=== PATIENT | female | born 1975 | race Asian ===

== ENCOUNTER 2016-11-17 19:52 | Emergency (ER) | payer OTHER ==
[~2016-11-17] VITALS: Ht 165.1 cm; Wt 108.9 kg
[2016-11-17 20:10] VITALS: BP 154/86; TEMP 98.3
== END 2016-11-17 22:02 | disposition home or self-care (01) ==
LOC: ED 19:52
DX: S60.212A Contusion of left wrist, initial encounter (principal); S90.02XA Contusion of left ankle, initial encounter; S90.32XA Contusion of left foot, initial encounter; V86.59XA Driver of other special all-terrain or other off-road motor vehicle injured in nontraffic accident, initial encounter
CPT/HCPCS: 99283

== ENCOUNTER 2019-02-12 09:33 | Outpatient (CLI) | payer OTHER | END 2019-02-12 23:59 | disposition home or self-care (01) | LOC: MAMMO 09:33 | DX: Z12.31 Encounter for screening mammogram for malignant neoplasm of breast (principal) ==

== ENCOUNTER 2019-03-02 10:15 | Outpatient (CLI) | payer OTHER | END 2019-03-02 22:53 | disposition home or self-care (01) | LOC: MAMMO 10:15 | DX: R92.8 Other abnormal and inconclusive findings on diagnostic imaging of breast (principal) ==

== ENCOUNTER 2022-12-25 14:21 | Emergency (ER) | payer OTHER ==
[~2022-12-25] VITALS: Ht 167.6 cm; Wt 117.9 kg
[2022-12-25 14:29] VITALS: TEMP 98.7
[2022-12-25 15:28] VITALS: BP 152/95
== END 2022-12-25 15:28 | disposition home or self-care (01) ==
LOC: ED 14:21
DX: L03.90 Cellulitis, unspecified (principal); I10 Essential (primary) hypertension
CPT/HCPCS: 99282

== ENCOUNTER 2023-03-18 11:26 | Outpatient (CLI) | payer OTHER | END 2023-03-18 20:47 | disposition home or self-care (01) | LOC: RAD 11:26 | PROVIDERS: ATTEND Student in an Organized Health Care Education/Training Program | DX: M54.16 Radiculopathy, lumbar region (principal); M54.59 Other low back pain; M25.511 Pain in right shoulder; M19.111 Post-traumatic osteoarthritis, right shoulder ==

== ENCOUNTER 2023-04-01 08:36 | Outpatient (CLI) | payer OTHER | END 2023-04-01 19:59 | disposition home or self-care (01) | LOC: MRI 08:36 | PROVIDERS: ATTEND Student in an Organized Health Care Education/Training Program | DX: M54.16 Radiculopathy, lumbar region (principal); M54.59 Other low back pain ==

== ENCOUNTER 2023-04-14 09:39 | Outpatient (CLI) | payer OTHER | END 2023-04-14 19:15 | disposition home or self-care (01) | LOC: RESP 09:39 | PROVIDERS: ATTEND Nurse Practitioner Family | DX: I10 Essential (primary) hypertension (principal); J06.9 Acute upper respiratory infection, unspecified | CPT/HCPCS: 93005 ==